=== PATIENT | male | born 1960 | race Caucasian/White ===

== ENCOUNTER 2021-06-14 14:05 | Outpatient (CLI) | payer BC ==
[~2021-06-14] VITALS: Ht 177.8 cm; Wt 70.3 kg
[2021-06-14 15:18] LABS: BASOPHILS # (AUTO) 0.1 X10'3 (0-0.2); BASOPHILS % (AUTO) 1.1 % (0-1); EOSINOPHILS # (AUTO) 0.1 X10'3 (0-0.9); EOSINOPHILS % (AUTO) 1.7 % (0-6); LYMPHOCYTES # (AUTO) 1.4 X10'3 (1.1-4.8); LYMPHOCYTES % (AUTO) 22.5 % (21-51); MEAN CORPUSCULAR HEMOGLOBIN 28.1 PG (27.0-31.0); MEAN CORPUSCULAR HGB CONC 33.2 g/dL (33.0-36.5); MEAN CORPUSCULAR VOLUME 84.7 FL (78-98); MEAN PLATELET VOLUME 7.8 FL (7.4-10.4); MONOCYTES # (AUTO) 0.6 X10'3 (0-0.9); MONOCYTES % (AUTO) 9.5 % (2-12); NEUTROPHILS # (AUTO) 4.2 X10'3 (1.8-7.7); NEUTROPHILS % (AUTO) 65.2 % (42-75); PRE OP HEMATOCRIT 41.6 % (42.0-52.0); PRE OP HEMOGLOBIN 13.8 g/dL (14.0-17.9); PRE OP PLATELET COUNT 298 X10'3 (140-440); RED BLOOD COUNT 4.91 X10'6 (4.70-6.10); RED CELL DISTRIBUTION WIDTH 15.4 % (11.5-14.5)
[2021-06-14 15:28] LABS: ALBUMIN 3.3 G/DL (3.4-5.0); ALBUMIN/GLOBULIN RATIO 0.8 (1.1-1.5); ALKALINE PHOSPHATASE 89 IU/L (46-116); BLOOD UREA NITROGEN 13 MG/DL (7-18); BUN/CREATININE RATIO 14.3 (5.4-32.0); CALCIUM 8.7 MG/DL (8.5-10.1); CHLORIDE 104 MMOL/L (99-107); CREATININE 0.91 MG/DL (0.60-1.10); PRE OP ALT 30 U/L (30-65); PRE OP ANION GAP 6 (8-16); PRE OP AST 18 U/L (10-37); PRE OP GLUCOSE 101 MG/DL (70-104); PRE OP POTASSIUM 4.4 MMOL/L (3.4-5.1); PRE OP SODIUM 141 MMOL/L (135-145); TOTAL CARBON DIOXIDE 31.3 MMOL/L (24-32); TOTAL PROTEIN 7.2 G/DL (6.4-8.2); eGFR 85 ML/MIN
[2021-06-14] MEDS ORDERED: NO HOME MEDS (16:21)
[2021-06-22] MEDS ORDERED: ringers solution, lacted 1,000 ML IV SCH (05:00)
[2021-06-22] MEDS ORDERED: famotidine 20mg tablet PO ONE (05:30)
== END 2021-06-14 23:59 | disposition home or self-care (01) ==
LOC: LAB 14:05 → EDSTATUS 06-22 12:00
PROVIDERS: ATTEND Orthopaedic Surgery
DX: Z01.818 Encounter for other preprocedural examination (principal); M17.11 Unilateral primary osteoarthritis, right knee; Z20.822 Contact with and (suspected) exposure to COVID-19; Z98.890 Other specified postprocedural states
CPT/HCPCS: 36415; 80053; 85025; 87081; 93005; U0003; U0005; J7120

== ENCOUNTER 2021-07-01 08:22 | Day surgery (SDC) | payer BC ==
[~2021-07-01] VITALS: Ht 180.3 cm; Wt 70.2 kg
[2021-07-01] VITALS (16 sets, daily range): BP systolic 105–132; BP diastolic 55–72
[~2021-07-01 08:22] MED LIST: NO HOME MEDS; VANCOMYCIN INJ 1000 MG in NORMAL SALINE 250ml IV.SOLN IV ONE; cefazolin/dext.iso 2gm/50ml IV ONE; famotidine 20mg tablet PO ONE; mupirocin 2% nasal ointment 1gm UD NS ONE
[2021-07-01] MEDS: ringers solution, lacted 1,000 ML IV SCH ×3 (09:28→16:42)
[2021-07-01 09:34] LABS: BASOPHILS % (AUTO) 0.9 % (0-1); EOSINOPHILS # (AUTO) 0.1 X10'3 (0-0.9); EOSINOPHILS % (AUTO) 2.2 % (0-6); LYMPHOCYTES # (AUTO) 0.9 X10'3 (1.1-4.8); LYMPHOCYTES % (AUTO) 18.2 % (21-51); MEAN CORPUSCULAR HEMOGLOBIN 28.9 PG (27.0-31.0); MEAN CORPUSCULAR HGB CONC 33.3 g/dL (33.0-36.5); MEAN CORPUSCULAR VOLUME 86.7 FL (78-98); MEAN PLATELET VOLUME 7.8 FL (7.4-10.4); MONOCYTES # (AUTO) 0.5 X10'3 (0-0.9); MONOCYTES % (AUTO) 9.5 % (2-12); NEUTROPHILS # (AUTO) 3.4 X10'3 (1.8-7.7); NEUTROPHILS % (AUTO) 69.2 % (42-75); PRE OP HEMATOCRIT 42.4 % (42.0-52.0); PRE OP HEMOGLOBIN 14.1 g/dL (14.0-17.9); PRE OP PLATELET COUNT 225 X10'3 (140-440); RED BLOOD COUNT 4.89 X10'6 (4.70-6.10); RED CELL DISTRIBUTION WIDTH 15.4 % (11.5-14.5)
[2021-07-01 09:45] LABS: ALBUMIN 3.4 G/DL (3.4-5.0); ALKALINE PHOSPHATASE 78 IU/L (46-116); BLOOD UREA NITROGEN 13 MG/DL (7-18); BUN/CREATININE RATIO 16.3 (5.4-32.0); CHLORIDE 105 MMOL/L (99-107); PRE OP ALT 30 U/L (30-65); PRE OP ANION GAP 9 (8-16); PRE OP AST 23 U/L (10-37); PRE OP BILIRUB, TOTAL 1.7 MG/DL (0.0-1.0); PRE OP GLUCOSE 85 MG/DL (70-104); PRE OP POTASSIUM 4.1 MMOL/L (3.4-5.1); PRE OP SODIUM 141 MMOL/L (135-145); TOTAL CARBON DIOXIDE 27.5 MMOL/L (24-32); TOTAL PROTEIN 6.9 G/DL (6.4-8.2); eGFR > 90 ML/MIN
[2021-07-01] MEDS ORDERED: MIDAZolam 1 MG/ML 5ML VIAL ONE (11:29)
[2021-07-01] MEDS ORDERED: fentaNYL/PF 50MCG/1 ML 2ML syringe ONE (11:29)
[2021-07-01] MEDS ORDERED: morphine 10mg/ml inj. ONE (11:34)
[2021-07-01] MEDS ORDERED: tranexamic acid 100mg/ml inj. ONE (11:34)
[2021-07-01] MEDS ORDERED: epiNEPHrine 1 mg/ml inj ONE (11:34)
[2021-07-01] MEDS ORDERED: ketorolac trometh. 30mg/ml inj. ONE (11:34)
[2021-07-01] MEDS ORDERED: ROPIVAcaine 0.5% (5mg/ml) 30ml vial ONE ×2 (11:35→13:59)
[2021-07-01] MEDS ORDERED: vancomycin 1,000mg inj ONE (12:42)
[2021-07-01] MEDS ORDERED: morphine 2 MG/ML inj. syringe IV PRN (12:45)
[2021-07-01] MEDS ORDERED: ringers solution, lacted 1,000 ML IV SCH (12:45)
[2021-07-01] MEDS ORDERED: ondansetron/PF 4mg/2ml inj IV PRN ×2 (12:45→13:45)
[2021-07-01] MEDS ORDERED: ROPIVAcaine 0.2%/PF PUMP/bolus 545 ML ADDCANAL SCH (12:45)
[2021-07-01] MEDS ORDERED: ROPIVAcaine 0.2% (10 MG/5 ML) BOLUS INJECTION ADDCANAL PRN (12:45)
[2021-07-01] MEDS ORDERED: morphine 4 MG/ML inj SYRINge IV PRN (12:45)
[2021-07-01] MEDS ORDERED: proCHLORperazine 10 MG/2 ml inj IV PRN (12:45)
[2021-07-01] MEDS ORDERED: meperidine/PF 25mg/ml syringe IV PRN ×3 (12:45)
[2021-07-01] MEDS ORDERED: Thrombin (Bovine) 5,000 unit vial TP ONE (13:15)
[2021-07-01] MEDS ORDERED: propofol inj 20 ML IV ONE ×2 (13:22)
[2021-07-01] MEDS ORDERED: tranexamic acid 1gm/0.7% sal. 100 ML IV ONE (13:45)
[2021-07-01] MEDS ORDERED: diphenhydrAMINE 25mg capsule PO PRN ×2 (13:45)
[2021-07-01] MEDS ORDERED: oxyCODONE IR 5mg (immed. release) tablet PO PRN ×2 (13:45)
[2021-07-01] MEDS ORDERED: HYDROmorphone inj. 0.5 MG/0.5 ML DISP.SYRIN IV PRN (13:45)
[2021-07-01] MEDS ORDERED: magnesium hydroxide 30ml (MOM) UD suspension PO PRN (13:45)
[2021-07-01] MEDS ORDERED: acetaminophen 325mg tablet PO PRN (13:45)
[2021-07-01] MEDS ORDERED: bisacodyl 10mg suppository rectal RC PRN (13:45)
[2021-07-01] MEDS ORDERED: HYDROmorphone 1 mg/ml syringe IV PRN (13:45)
--- NOTE | 2021-07-01 14:05 | NUR ---
Received from OR via BED, accompanied by Anesthesiologist and report given by Anesthesiologist. PATIENT WAKING UP, NO S/S OF PAIN, V/S WNL, SCD ON, 18G LUE, drsg to RIGHT KNEE CDI,
--- NOTE | 2021-07-01 14:55 | NUR ---
Patient in room . I have received report from Sameer CHANEYbead forming machine set up operator and had the opportunity to ask questions and assume patient care.
--- NOTE | 2021-07-01 14:55 | NUR ---
PATIENT A&OX4, DENIES PAIN, V/S WNL, SCD ON, 18G LUE, drsg to RIGHT KNEE CDI, PATIENT TAKEN TO ROOM 359B WITH ALL BELONGINGS AND HOOKED UP TO MONITORS IN ROOM AND GIVEN CALL LIGHT, REPORT GIVEN TO RN WHO HAS TAKEN OVER PATIENT CARE.
[2021-07-01] MEDS: potassium cl 20mEq in 1/2 NS 1,000 ML IV SCH (15:22)
[2021-07-01] MEDS: ceFAZolin/D5W- 1GM premix 50 ML IV SCH (16:29)
[2021-07-01] MEDS: acetaminophen 325mg tablet PO SCH ×2 (16:29→20:27)
[2021-07-01] MEDS ORDERED: tranexamic acid inj. 1,000 MG in 0.7% saline 100 ML PMX IV ONE ×2 (17:05→17:46)
--- NOTE | 2021-07-01 18:14 | NUR ---
Problems reprioritized. Patient report given, questions answered & plan of care reviewed with Kaur CHANEY Traveler.
[2021-07-01] MEDS ORDERED: vancomycin/NS 1 GM ADD-VANTAGE 250 ML IV SCH (20:00)
[2021-07-01] MEDS: gabapentin 300mg capsule PO SCH (20:27)
[2021-07-01] MEDS ORDERED: sennosides 8.6mg tablet PO SCH (21:00)
[2021-07-02] VITALS: BP 90/53
[2021-07-02] MEDS: ceFAZolin/D5W- 1GM premix 50 ML IV SCH (00:29)
[2021-07-02] MEDS: potassium cl 20mEq in 1/2 NS 1,000 ML IV SCH ×2 (00:29→04:57)
[2021-07-02] MEDS: acetaminophen 325mg tablet PO SCH ×2 (02:00→08:00)
[2021-07-02 04:00] VITALS: BP 132/62
[2021-07-02 06:31] LABS: BASOPHILS % (AUTO) 0.1 % (0-1); EOSINOPHILS % (AUTO) 0 % (0-6); HEMOGLOBIN 12.4 g/dl (14.0-17.9); LYMPHOCYTES # (AUTO) 0.7 X10'3 (1.1-4.8); LYMPHOCYTES % (AUTO) 6.1 % (21-51); MEAN CORPUSCULAR HEMOGLOBIN 28.8 PG (27.0-31.0); MEAN CORPUSCULAR HGB CONC 33.5 g/dL (33.0-36.5); MEAN PLATELET VOLUME 8.3 FL (7.4-10.4); MONOCYTES # (AUTO) 0.9 X10'3 (0-0.9); MONOCYTES % (AUTO) 7.8 % (2-12); PLATELET COUNT 232 X10'3 (140-440); RED CELL DISTRIBUTION WIDTH 14.9 % (11.5-14.5); WHITE BLOOD COUNT 11.7 X10'3 (4.5-11.0)
[2021-07-02 06:48] LABS: ANION GAP 9 (8-16); CHLORIDE 105 MMOL/L (99-107); POTASSIUM 4.6 MMOL/L (3.5-5.1); SODIUM 138 MMOL/L (135-145); TOTAL CARBON DIOXIDE 24.5 MMOL/L (24-32)
--- NOTE | 2021-07-02 07:10 | NUR ---
Patient in room [facility]. I have received report from Kaur trujillo and had the opportunity to ask questions and assume patient care.
[2021-07-02 08:00] VITALS: BP 111/58
[2021-07-02] MEDS ORDERED: aspirin 325mg tablet PO SCH (08:30)
[2021-07-02] MEDS: gabapentin 300mg capsule PO SCH (08:58)
[2021-07-02 12:00] VITALS: BP 103/56
--- NOTE | 2021-07-02 13:50 | NUR ---
Pt is DC to home with . Pt is A & o x4 and in no apparent distress. Pt verbalizes understanding of all dc orders. pt able to teach back DC orders, exercises and the importance of following up with Dr. Romero. IV cath removed intact. Pt already has medications, and follow up schedule. pt got dressed and wheeld to the front where picked him up.
[2021-07-02] MEDS ORDERED: celeCOXIB 100mg capsule PO SCH (20:00)
[2021-07-03] MEDS ORDERED: acetaminophen 325mg tablet PO PRN (13:45)
== END 2021-07-02 13:45 | disposition home or self-care (01) ==
LOC: PAS 08:22 → SUR 3N 13:50 → UNDOADMOB 13:50 → PAS 07-02 13:45 → UNDODISOB 07-02 13:45
PROVIDERS: ATTEND Orthopaedic Surgery
DX: M17.11 Unilateral primary osteoarthritis, right knee (principal); G89.18 Other acute postprocedural pain; Z20.822 Contact with and (suspected) exposure to COVID-19; Z98.890 Other specified postprocedural states
CPT/HCPCS: 27447; 36415; 64448; 73560; 76937; 80051; 80053; 85025; 87635; 97116; 97161; 97530; C1776; C9803; J0171; J0690; J1885; J2250; J2274; J2704; J2795; J3010; J3370; J3480; J3490; J7030; J7120; Z7506; Z7508; Z7512; A4215; A7000; G0378